=== PATIENT | male | born 1945 | race Caucasian/White ===

== ENCOUNTER → 2017-07-12 | Outpatient (CLI) | payer BC ==
[2016-08-06 11:45] VITALS: BP 143/77
[~2017-07-12] MED LIST: ATOR10TA60 PO; GLIM1TAB2 PO; HYDR-2678 PO; IOHEXOL 240 MG/ML 50ML VIAL. PO ONE; IOHEXOL 300 MG/ML 75 ML VIAL IV ONE; LISI10TA2 PO; METF500T4 PO; OMEG500C PO
--- NOTE | 2017-07-12 11:29 | RAD ---
CT scan of the chest, abdomen and pelvis with contrast 07/12/2017 Clinical history: Rectal cancer. Technique: After the oral and intravenous administration of contrast, contiguous, 5 mm axial sections were obtained through the abdomen and pelvis. 75 cc of Omnipaque 300 were administered intravenously this examination. One or more of the following individualized dose reduction techniques were utilized for this study: 1. Automated exposure control. 2. Adjustment of the mA and/or kV according to patient size. 3. Use of iterative reconstruction technique. Findings: Comparison is made to the patient's PET/CT scan dated 07/30/2016. A right internal jugular central venous catheter is seen extending to the superior vena cava. The heart is borderline enlarged. Atherosclerotic calcification of the thoracic aorta and its branches to include the coronary arteries is seen. The thoracic aorta is minimally tortuous but tapers normally. No hilar, mediastinal or axillary lymphadenopathy is seen. Mild emphysematous changes are seen involving both lungs. No acute pulmonary infiltrate is seen. No pneumothorax or pleural effusion is noted. No pulmonary mass is seen. The liver, spleen, pancreas, adrenal glands and kidneys are within normal limits. Moderate atherosclerotic calcification of the abdominal aorta is seen. The abdominal aorta tapers normally. The gallbladder is contracted. No free fluid or free air is seen within the abdomen. Air and stool is seen throughout the colon. The appendix is partially visualized and is within normal limits. No retroperitoneal lymphadenopathy is seen. A colostomy is seen within the left lower quadrant of the abdomen. There is no evidence of bowel obstruction. A small umbilical hernia is seen which contains fat. This measures 3 cm in greatest diameter. Images through the pelvis demonstrate the urinary bladder distended with urine. The rectum has been resected. Increased soft tissue density is seen within the presacral soft tissues which is presumably postsurgical. Calcifications are seen in the prostate gland. The prostate gland is mildly enlarged likely related to BPH. No free fluid is seen. No pelvic or inguinal lymphadenopathy is seen. Very mild S-shaped curvature of the thoracolumbar spine is noted. Degenerative changes are seen involving the thoracic and lumbar spine. Impression: The patient is status post resection of the rectum since the previous examination. A colostomy has been placed into the left lower quadrant of the abdomen. Increased soft tissue density is seen anterior to the sacrum which is presumably postsurgical. There is no CT evidence of metastatic disease involving the chest, abdomen or pelvis.
== END | disposition home or self-care (01) ==
LOC: CT 08:37
PROVIDERS: ATTEND Internal Medicine Hematology & Oncology
DX: C20 Malignant neoplasm of rectum (principal); J43.8 Other emphysema; I10 Essential (primary) hypertension; E11.9 Type 2 diabetes mellitus without complications; Z90.49 Acquired absence of other specified parts of digestive tract; Z93.3 Colostomy status; Z87.891 Personal history of nicotine dependence
CPT/HCPCS: 71260; 74177; Q9966; Q9967

== ENCOUNTER → 2017-07-28 | Outpatient (CLI) | payer BC ==
[~2017-07-28] VITALS: Ht 177.8 cm; Wt 78.5 kg
[~2017-07-28] MED LIST changes: -IOHEXOL 240 MG/ML 50ML VIAL. PO ONE; -IOHEXOL 300 MG/ML 75 ML VIAL IV ONE; +LIDOCAINE 1%/EPI 1:100,000 20 ML VIAL. INJ ONE; +LIDOCAINE 1%/EPI 1:100,000 20 ML VIAL. ONE
[2017-07-28 08:59] LABS: BASO # 0.1 x10^3/uL (0.0-0.2); BASO % 1 % (0-3); EOS % 1 % (0-3); HEMATOCRIT 43.8 % (39.0-53.0); HEMOGLOBIN 15.1 g/dL (13.0-17.5); LYMPH # 1.4 x10^3/uL (1.0-4.8); LYMPH % 11 % (24-48); MEAN CORPUSCULAR HEMOGLOBIN 38 pg (25-35); MEAN CORPUSCULAR HGB CONC 35 g/dL (31-37); MEAN CORPUSCULAR VOLUME 111 fL (79-100); MONO % 8 % (0-9); NEUT % 79 % (31-73); PLATELET COUNT 318 x10^3/uL (140-400); RED BLOOD COUNT 3.96 x10^6/uL (4.30-5.70); RED CELL DISTRIBUTION WIDTH 14.5 % (11.5-14.5); WHITE BLOOD COUNT 12.6 x10^3/uL (4.0-11.0)
[2017-07-28 09:15] VITALS: BP 107/65
[2017-07-28 09:20] LABS: INR 0.9 (0.8-1.1); PROTHROMBIN TIME PATIENT 11.8 SEC (11.7-14.0)
[2017-07-28 10:06] VITALS: BP 124/77
[2017-07-28 10:15] VITALS: BP 132/77
--- NOTE | 2017-07-28 10:50 | RAD ---
Fluoroscopically guided removal of a right internal jugular port 07/28/2017 Indication: Patient no longer requires central venous access Discussion: The risks and benefits of the procedure were discussed the patient. Informed consent was obtained. A timeout procedure was performed. Fluoroscopic imaging reveals expected position of a right internal jugular PowerPort. The right neck and chest were draped using maximum sterile barrier technique. All elements of maximal sterile barrier technique including the use of a cap, mask, sterile gown, sterile gloves, large sterile sheet, appropriate hand hygiene, and 2% chlorhexidine for cutaneous antisepsis (or acceptable alternative antiseptic per current guidelines) were followed for this procedure. 1% lidocaine without epinephrine was administered for local anesthesia. A small incision was made overlying the port reservoir. Using minimal sharp and blunt dissection the reservoir and catheter were freed and removed intact. The wound was closed in layers using 4-0 Vicryl suture. Complete removal was confirmed with fluoroscopy. Manual pressure was held to achieve hemostasis. A sterile dressing was applied. No immediate complications were identified. Fluoroscopy time: 0.0 minutes Dose area product 1 Gycm2 Impression: Successful removal of right internal jugular PowerPort
[2017-07-28 11:21] LABS: PLT ESTIMATE ADEQUATE (ADEQUATE)
== END | disposition home or self-care (01) ==
LOC: INTRAD 08:30
PROVIDERS: ATTEND Internal Medicine Hematology & Oncology
DX: Z45.2 Encounter for adjustment and management of vascular access device (principal); E78.00 Pure hypercholesterolemia, unspecified; I10 Essential (primary) hypertension; E11.9 Type 2 diabetes mellitus without complications; F17.200 Nicotine dependence, unspecified, uncomplicated; Z85.038 Personal history of other malignant neoplasm of large intestine; Z72.0 Tobacco use; Z86.39 Personal history of other endocrine, nutritional and metabolic disease
CPT/HCPCS: 36415; 36590; 85025; 85610; J1644; J3490

== ENCOUNTER → 2019-08-02 | Outpatient (CLI) | payer BC ==
[2017-07-28 10:15] VITALS: BP 132/77
[~2019-08-02] MED LIST changes: +CONTRAST GIVEN. MC PRN; +IOHEXOL 240 MG/ML 50ML VIAL. PO ONE; +IOHEXOL 300 MG/ML 100ML VIAL. IV ONE; -LIDOCAINE 1%/EPI 1:100,000 20 ML VIAL. INJ ONE; -LIDOCAINE 1%/EPI 1:100,000 20 ML VIAL. ONE; +METF500T16 PO; -METF500T4 PO
--- NOTE | 2019-08-02 12:53 | RAD ---
EXAM: CT Chest, Abdomen and Pelvis with IV contrast CLINICAL HISTORY: Rectal cancer COMPARISON: 07/12/17 TECHNIQUE: Helical CT of the chest, abdomen and pelvis was performed following the administration of intravenous contrast. Axial, coronal and sagittal reformatted images were generated. ---PQRS compliance statement - One or more of the following individualized dose reduction techniques were utilized for this study: 1. Automated exposure control 2. Adjustment of the mA and/or kV according to patient size 3. Use of iterative reconstruction technique--- FINDINGS: Chest: The heart is not enlarged. No pericardial effusion. Coronary artery calcifications are seen. No pleural effusion or pneumothorax. Emphysematous changes are seen bilaterally. No suspicious lung nodule or mass is seen. No mediastinal or hilar lymphadenopathy. A few prominent left axillary lymph nodes are seen, for example a termite control service representative left axillary lymph node measures 7 mm in short axis. Abdomen and Pelvis: Hepatic hypoattenuation likely hepatic steatosis. High density material within the gallbladder likely sludge. No biliary ductal dilatation. Pancreas is unremarkable. Adrenal glands are normal. Spleen is unremarkable. Symmetric nephrograms. No focal renal lesion. No hydronephrosis. No hydroureter. Bladder wall thickening may be seen with cystitis. Colostomy is seen in the left lower quadrant. Colonic diverticulosis without evidence for acute diverticulitis. Appendix is normal. No evidence for bowel obstruction. No abdominal or pelvic ascites. No abdominal or pelvic lymphadenopathy. Vascular calcifications are seen. Small fat-containing periumbilical hernia. Fat-containing bilateral inguinal hernias are seen. Presacral thickening/fat infiltration is noted, possibly postsurgical change. Aortic calcifications are seen. Bones: Mild curvature of the thoracolumbar spine. Osseous Structures are grossly unremarkable. IMPRESSION: 1. Changes of left lower quadrant colostomy. No evidence for bowel obstruction. 2. No thoracic, abdominal or pelvic lymphadenopathy. 3. Colonic diverticulosis without evidence for acute diverticulitis. 4. Bladder wall thickening may be seen with cystitis. 5. Hepatic hypoattenuation likely hepatic steatosis. Electronically signed by: Kelton Walsh MD (08/02/2019 12:50 PM) [facility]
== END | disposition home or self-care (01) ==
LOC: CT 09:48
PROVIDERS: ATTEND Internal Medicine Hematology & Oncology
DX: C20 Malignant neoplasm of rectum (principal); J43.9 Emphysema, unspecified; K57.30 Diverticulosis of large intestine without perforation or abscess without bleeding; K42.9 Umbilical hernia without obstruction or gangrene; K40.20 Bilateral inguinal hernia, without obstruction or gangrene, not specified as recurrent; I70.0 Atherosclerosis of aorta; Z93.3 Colostomy status
CPT/HCPCS: 71260; 74177; Q9966; Q9967